=== PATIENT | male | born 1990 | race Caucasian/White ===

== ENCOUNTER 2022-10-18 15:16 | Emergency (ER) | payer OTHER, SELFPAY ==
[2022-10-18 15:20] VITALS: BP 136/63; PULSE 81; RESP 16; TEMP 36.6; O2SAT 98; BMI 25.8
--- NOTE | 2022-10-18 15:54 | DI.CT.S_ITS ---
PROCEDURE: CT CERVICAL SPINE WO CON INDICATIONS: hit in head w/ pipe. head and cervical spine pain TECHNIQUE: Noncontrast 3 mm thick sections acquired from the skull base to the T4 level. Sagittal and coronal reformats were then constructed. For radiation dose reduction, the following was used: automated exposure control, adjustment of mA and/or kV according to patient size. COMPARISON: None. FINDINGS: Image quality: Excellent. Bones: No fractures or dislocations. Visualized superior ribs are intact. There is straightening the normal cervical lordosis. Mild degenerative disc space narrowing noted C5-6 Soft tissues: Prevertebral soft tissues are normal in thickness. No paravertebral hematomas. No apical pneumothoraces. IMPRESSION: No fracture or traumatic malalignment. Mild midcervical degenerative changes Approved by: Mani Meyer M.D. on 10/18/2022 at 15:38
--- NOTE | 2022-10-18 15:54 | DI.CT.S_ITS ---
PROCEDURE: CT HEAD/BRAIN WO CON INDICATIONS: hit in head w/ pipe. head and cervical spine pain TECHNIQUE: Noncontrast 4.5 mm thick angled axial sections acquired from the foramen magnum to the vertex, with coronal and sagittal reformats. For radiation dose reduction, the following was used: automated exposure control, adjustment of mA and/or kV according to patient size. COMPARISON: None. FINDINGS: Image quality: Excellent. CSF spaces: Basal cisterns are patent. No extra-axial fluid collections. Ventricles are normal in size and shape. Brain: No midline shift. No intracranial masses or hemorrhage. Mckee-white matter interface is normal. Skull and face: Calvarium and visualized facial bones are intact, without suspicious lesions. Sinuses: Visualized sinuses and mastoids are clear. IMPRESSION: Normal CT brain. No intracranial hemorrhage or skull fracture Approved by: Mani Meyer M.D. on 10/18/2022 at 15:42
[2022-10-18 18:18] VITALS: BP 125/67; PULSE 60; RESP 16; O2SAT 100
--- NOTE | 2022-10-18 18:21 | ED.HEATRA ---
HPI - Head Injury <Devin White PA-C - Last Filed: 10/18/22 18:26> General Chief complaint: Head Injury Stated complaint: Head inj Time Seen by Provider: 10/18/22 18:13 Source: patient Mode of arrival: Ambulatory History of Present Illness HPI Narrative: 32-year-old male with no reported past medical history presents to the ED status post a head injury sustained at work just prior to arrival. 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 Patient complains of left-sided neck pain and no other symptoms. Patient did not have any loss of consciousness. Patient is not on blood thinners. Patient endorses some brief nausea after the injury, which has resolved since. No vomiting. Review of Systems <Devin White PA-C - Last Filed: 10/18/22 18:26> Review of Systems ROS Unobtainable: All systems reviewed & are unremarkable except as noted in HPI and below Constitutional Constitutional: Denies chills, Denies fatigue, Denies fever(s), Denies frequent falls, Denies lethargy and Denies weakness Eyes Eyes: Denies change in vision, Denies eye discharge, Denies irritation and Denies loss of vision ENT Ears, Nose, Mouth, and Throat: Denies change in voice, Denies dizziness, Reports neck pain, Denies sore throat and Denies throat swelling Cardiovascular Cardiovascular: Denies chest pain, Denies irregular heart rhythm, Denies lightheadedness, Denies palpitations, Denies dyspnea, Denies dyspnea on exertion and Denies orthopnea Respiratory Respiratory: Denies cough, Denies dyspnea, Denies dyspnea on exertion and Denies wheezing Gastrointestinal Gastrointestinal: Denies abdominal pain, Denies change in bowel habits, Denies diarrhea, Denies nausea and Denies vomiting Genitourinary Genitourinary: Denies hematuria, Denies flank pain, Denies urinary incontinence and Denies urinary urgency Musculoskeletal Musculoskeletal: Denies back pain, Denies muscle weakness, Reports neck pain, Denies numbness and Denies tingling Integumentary/Breasts Skin/Breast: Denies pruritus, Denies erythema, Denies rash and Denies wounds Neurologic Neurologic: Denies behavioral changes, Denies confusion, Denies dizziness, Denies frequent falls, Denies loss of vision, Denies numbness, Denies tingling and Denies weakness Psychiatric Psychiatric: Denies anxiety, Denies behavioral changes, Denies confusion, Denies depression, Denies homicidal ideation and Denies suicidal ideation Endocrine Endocrine: Denies fatigue, Denies flushing and Denies palpitations Hematologic/Lymphatic Hematologic/Lymphatic: Denies easy bruising Allergic/Immunologic Allergic/Immunologic: Denies urticaria, Denies throat swelling and Denies wheezing Patient History <Devin White PA-C - Last Filed: 10/18/22 18:26> Social History Smoking Status: Former smoker Smoking Status: Former smoker Substance Use Type: does not use Exam <Devin White PA-C - Last Filed: 10/18/22 18:26> Narrative Exam Narrative: Const General:?cooperative, healthy appearing and comfortable HENNE Head:?normal to inspection; no hematoma; no skull depressions; no mishra sign Ears:?hearing grossly normal bilaterally Nose:?external nose normal Face and sinus:?normal facial exam and sinuses nontender; no raccoon eyes Mouth:?oral mucosae normal Throat:?posterior oropharynx normal Eyes General:?appearance normal, both eyes and all related structures Neck Neck:?normal visual inspection and no lymphadenopathy noted Resp Effort & Inspection:?normal respiratory effort Auscultation:?clear to auscultation bilaterally Cardio Rate:?regular rate Rhythm:?regular rhythm Musculoskeletal No midline tenderness to palpation. No paraspinal tenderness to palpation. There is full range of motion. Neuro General:?patient alert, patient awake and patient oriented x3 Initial Vital Signs Initial Vital Signs: Vital Signs Temperature 97.9 F 10/18/22 15:20 Pulse Rate 81 10/18/22 15:20 Respiratory Rate 16 10/18/22 15:20 Blood Pressure 136/63 10/18/22 15:20 Pulse Oximetry 98 10/18/22 15:20 Oxygen Delivery Method Room Air 10/18/22 15:20 <Vira Biswas DO - Last Filed: 10/20/22 22:19> Initial Vital Signs Initial Vital Signs: Vital Signs Temperature 97.9 F 10/18/22 15:20 Pulse Rate 81 10/18/22 15:20 Respiratory Rate 16 10/18/22 15:20 Blood Pressure 136/63 10/18/22 15:20 Pulse Oximetry 98 10/18/22 15:20 Oxygen Delivery Method Room Air 10/18/22 15:20 Course <LATESHA Blanc Last Filed: 10/18/22 18:26> Orders Ordered: ED Orders 10/18/22 15:54 CT cervical spine wo con Stat CT head/brain wo con Stat Vital Signs Vital signs: Vital Signs - 8 hr 10/18/22 15:20 10/18/22 18:18 Temperature 97.9 F Pulse Rate 81 60 Respiratory Rate 16 16 Blood Pressure 136/63 125/67 Pulse Oximetry 98 100 Oxygen Delivery Method Room Air <Vira Biswas DO - Last Filed: 10/20/22 22:19> Orders Ordered: ED Orders 10/18/22 15:54 CT cervical spine wo con Stat CT head/brain wo con Stat Vital Signs Vital signs: Vital Signs - 8 hr 10/18/22 15:20 10/18/22 18:18 Temperature 97.9 F Pulse Rate 81 60 Respiratory Rate 16 16 Blood Pressure 136/63 125/67 Pulse Oximetry 98 100 Oxygen Delivery Method Room Air MDM - Head Injury <LATESHA Blanc Last Filed: 10/18/22 18:26> MDM Narrative Medical decision making narrative: 32-year-old male with no reported past medical history presents to the ED status post a head injury sustained at work just prior to arrival. Concern for intracranial hemorrhage versus skull fracture versus neck fracture versus musculoskeletal sprain/strain versus other. CT head, CT C-spine were obtained with no acute findings. Patient's symptoms are likely due to musculoskeletal sprain/strain. It is possible that patient could experience symptoms of a concussion. Discussed findings with patient. Recommend follow-up with PCP as soon as possible. ED return precautions were also discussed with patient. Patient verbalized understanding. Medical records reviewed: Yes Discharge Plan Departure Patient Disposition: Home Clinical Impression: Closed head injury Instructions: DI for Closed Head Injury Activity Restrictions/Additional Instructions: You were evaluated in the ED today for a head injury sustained earlier today. The CT scans of the head and neck were both normal. You may take Tylenol or ibuprofen for the aches and pains from this injury. It is possible that this head injury you sustained could be a concussion, with symptoms ranging from sporadic vomiting, sleepiness, fatigue, headaches, depression, agitation. If you experience any of the symptoms, please exercise cognitive and physical rest, which includes no screens, books, physical exertion. Please follow-up with your PCP as soon as possible. Return to the ED if you experience persistent vomiting, lethargy. Stand Alone Forms: Patient Portal/API <Vira Biswas, DO - Last Filed: 10/20/22 22:19> Cosign ED Attending Kenishaature Attestation: I was immediately available in the department for consultation. Documentation has been reviewed.
== END 2022-10-18 18:25 | disposition home or self-care (01) ==
PROVIDERS: Emergency Provider Student in an Organized Health Care Education/Training Program
DX: S09.90XA Unspecified injury of head, initial encounter (principal); W22.8XXA Striking against or struck by other objects, initial encounter; Y99.0 Civilian activity done for income or pay
CPT/HCPCS: 70450; 72125; 99283; 99284

== ENCOUNTER 2023-05-09 10:29 | Emergency (ER) | payer OTHER, SELFPAY ==
[2023-05-09 11:07] VITALS: BP 138/65; PULSE 90; RESP 18; TEMP 36.8; O2SAT 100; BMI 25.8
--- NOTE | 2023-05-09 11:14 | DI.RAD.S_ITS ---
PROCEDURE: XR HAND LT MIN 3V INDICATIONS: Hand crushed by escvator TECHNIQUE: 3 views of the hand(s) acquired. COMPARISON: None. FINDINGS: Bones: No fractures or dislocations. Carpal bones are normally aligned. No suspicious bony lesions. Soft tissues: No suspicious soft tissue calcifications. Soft tissue gas surrounds the 1st digit. IMPRESSION: 1. Soft tissue laceration. 2. No acute fracture. No osseous lesion. If symptoms and/or clinical suspicion for pathology persist, further assessment with repeat, or advanced imaging (e.g., CT, MRI, or bone scan) may be helpful for further assessment. Dictated by: Brandy Crowe M.D. on 05/09/2023 at 11:52 Approved by: Brandy Crowe M.D. on 05/09/2023 at 11:52
--- NOTE | 2023-05-09 11:14 | DI.RAD.S_ITS ---
PROCEDURE: XR FOREARM LT 2V INDICATIONS: Hand crushed by escvator TECHNIQUE: 2 views of the forearm were acquired. COMPARISON: None. FINDINGS: Bones: No fractures or dislocations. No suspicious bony lesions. Soft tissues: No suspicious soft tissue calcifications or masses. IMPRESSION: No acute fracture. No osseous lesion. If symptoms and/or clinical suspicion for pathology persist, further assessment with repeat, or advanced imaging (e.g., CT, MRI, or bone scan) may be helpful for further assessment. Dictated by: Brandy Crowe M.D. on 05/09/2023 at 11:50 Approved by: Brandy Crowe M.D. on 05/09/2023 at 11:50
--- NOTE | 2023-05-09 11:14 | DI.RAD.S_ITS ---
PROCEDURE: XR WRIST LT MIN 3V INDICATIONS: Hand crushed by escvator TECHNIQUE: 4 views of the wrist were acquired. COMPARISON: None. FINDINGS: Bones: No fractures or dislocations. No suspicious bony lesions. Soft tissues: No suspicious soft tissue calcifications. IMPRESSION: No acute fracture. No osseous lesion. If symptoms and/or clinical suspicion for pathology persist, further assessment with repeat, or advanced imaging (e.g., CT, MRI, or bone scan) may be helpful for further assessment. Dictated by: Brandy Crowe M.D. on 05/09/2023 at 11:50 Approved by: Brandy Crowe M.D. on 05/09/2023 at 11:52
--- NOTE | 2023-05-09 12:10 | ED.UPPEXIN ---
HPI - Extremity Injury (Upper) <Devin White PA-C - Last Filed: 05/10/23 19:37> General Chief Complaint: Extremity Injury, Upper Stated Complaint: hand got crushed at work Time Seen by Provider: 05/09/23 11:59 Source: patient Mode of arrival: Ambulatory History of Present Illness HPI narrative: 33-year-old male presents to the ED status post a left hand injury sustained just prior to arrival. 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 Patient endorses being able to move all his fingers, however his thumb is painful to move. Patient has an injury to the webbing between his thumb and index finger. Bleeding is controlled with pressure. Tetanus is not up-to-date. Related Data Allergies Allergy/AdvReac Type Severity Reaction Status Date / Time No Known Drug Allergies Allergy Verified 05/09/23 11:13 Review of Systems <Devin White PA-C - Last Filed: 05/10/23 19:37> Constitutional Constitutional: Denies chills, Denies fatigue, Denies fever(s), Denies frequent falls, Denies lethargy and Denies weakness Eyes Eyes: Denies change in vision, Denies eye discharge, Denies irritation and Denies loss of vision ENT Ears, Nose, Mouth, and Throat: Denies change in voice, Denies dizziness, Denies neck pain, Denies sore throat and Denies throat swelling Cardiovascular Cardiovascular: Denies chest pain, Denies irregular heart rhythm, Denies lightheadedness, Denies palpitations, Denies dyspnea, Denies dyspnea on exertion and Denies orthopnea Respiratory Respiratory: Denies cough, Denies dyspnea, Denies dyspnea on exertion and Denies wheezing Gastrointestinal Gastrointestinal: Denies abdominal pain, Denies change in bowel habits, Denies diarrhea, Denies nausea and Denies vomiting Musculoskeletal Musculoskeletal: Denies neck pain and Denies numbness Integumentary/Breasts Skin/Breast: Denies pruritus, Denies erythema, Denies rash and Reports wounds Neurologic Neurologic: Denies behavioral changes, Denies confusion, Denies dizziness, Denies frequent falls, Denies loss of vision, Denies numbness and Denies weakness Psychiatric Psychiatric: Denies anxiety, Denies behavioral changes, Denies confusion, Denies depression, Denies homicidal ideation and Denies suicidal ideation Endocrine Endocrine: Denies fatigue, Denies flushing and Denies palpitations Hematologic/Lymphatic Hematologic/Lymphatic: Denies easy bruising Allergic/Immunologic Allergic/Immunologic: Denies urticaria, Denies throat swelling and Denies wheezing Patient History <Devin White PA-C - Last Filed: 05/10/23 19:37> Social History Smoking Status: Former smoker Smoking Status: Former smoker Substance Use Type: does not use Exam <Devin White PA-C - Last Filed: 05/10/23 19:37> Narrative Exam Narrative: Const General:?cooperative, healthy appearing and comfortable HENMT Head:?normal to inspection Ears:?hearing grossly normal bilaterally Nose:?external nose normal Face and sinus:?normal facial exam and sinuses nontender Mouth:?oral mucosae normal Throat:?posterior oropharynx normal Eyes General:?appearance normal, both eyes and all related structures Neck Neck:?normal visual inspection and no lymphadenopathy noted Resp Effort & Inspection:?normal respiratory effort Auscultation:?clear to auscultation bilaterally Cardio Rate:?regular rate Rhythm:?regular rhythm Integumentary There are 2 lacerations, 1 to the base of the thumb on the volar aspect. The 2nd laceration is to the webbing between the thumb and the pointer finger. Bleeding is controlled with pressure. No deeper structures visualized on exam. Strength and sensation is intact. There is full range of motion. Patient is neurovascularly intact. Neuro General:?patient alert, patient awake and patient oriented x3 Initial Vital Signs Initial Vital Signs: Vital Signs Temperature 98.2 F 05/09/23 11:07 Pulse Rate 90 05/09/23 11:07 Respiratory Rate 18 05/09/23 11:07 Blood Pressure 138/65 05/09/23 11:07 Pulse Oximetry 100 05/09/23 11:07 Oxygen Delivery Method Room Air 05/09/23 11:07 <Cara Melton DO - Last Filed: 05/16/23 07:07> Initial Vital Signs Initial Vital Signs: Vital Signs Temperature 98.2 F 05/09/23 11:07 Pulse Rate 90 05/09/23 11:07 Respiratory Rate 18 05/09/23 11:07 Blood Pressure 138/65 05/09/23 11:07 Pulse Oximetry 100 05/09/23 11:07 Oxygen Delivery Method Room Air 05/09/23 11:07 Procedures <Devin White PA-C - Last Filed: 05/10/23 19:37> Laceration Repair Laceration 1: Site: hand Side (If applicable): left Size (cm): 1 Description: linear Depth: simple, single layer Local Anesthetic: lidocaine 2% Amount of anesthesia used (mL): 0.5 Pre-repair: wound explored, irrigated extensively and deep structures intact Skin layer closed with: nylon Skin layer suture size: 5-0 Number of sutures: 4 Technique: simple, interrupted Laceration 2: Site: hand Side (If applicable): left Size (cm): 4 Description: linear Depth: simple, single layer Local Anesthetic: lidocaine 2% Amount of anesthesia used (mL): 4 Pre-repair: wound explored, irrigated extensively and deep structures intact Skin layer closed with: nylon Skin layer suture size: 5-0 Number of sutures: 5 Technique: simple, interrupted Course <Devin White PA-C - Last Filed: 05/10/23 19:37> Orders Ordered: Discontinued Medications Diphtheria/Tetanus/Acell Pertussis (Tet,Diph,Pertuss(Acell),Vac/Pf 0.5 Ml Syringe) 0.5 ml IM .ONCE ONE Stop: 05/09/23 11:15 Last Admin: 05/09/23 14:14 Dose: 0.5 ml Documented By: TIFFANIE Lidocaine HCl (Lidocaine 2% Inj Sdv 5ml) 5 ml INJ INTRA-OP ONE Stop: 05/09/23 13:10 Last Admin: 05/09/23 13:56 Dose: 5 ml Documented By: TIFFANIE Oxycodone/Acetaminophen (Oxycodone/Acetaminophen 5/325 Tablet) 1 tab PO NOW ONE Stop: 05/09/23 13:07 Last Admin: 05/09/23 13:08 Dose: 1 tab Documented By: TIFFANIE Vital Signs Vital signs: Vital Signs - 8 hr 05/09/23 11:07 Temperature 98.2 F Pulse Rate 90 Respiratory Rate 18 Blood Pressure 138/65 Pulse Oximetry 100 Oxygen Delivery Method Room Air <Cara Melton DO - Last Filed: 05/16/23 07:07> Orders Ordered: Discontinued Medications Diphtheria/Tetanus/Acell Pertussis (Tet,Diph,Pertuss(Acell),Vac/Pf 0.5 Ml Syringe) 0.5 ml IM .ONCE ONE Stop: 05/09/23 11:15 Last Admin: 05/09/23 14:14 Dose: 0.5 ml Documented By: TIFFANIE Lidocaine HCl (Lidocaine 2% Inj Sdv 5ml) 5 ml INJ INTRA-OP ONE Stop: 05/09/23 13:10 Last Admin: 05/09/23 13:56 Dose: 5 ml Documented By: TIFFANIE Oxycodone/Acetaminophen (Oxycodone/Acetaminophen 5/325 Tablet) 1 tab PO NOW ONE Stop: 05/09/23 13:07 Last Admin: 05/09/23 13:08 Dose: 1 tab Documented By: TIFFANIE Vital Signs Vital signs: Vital Signs - 8 hr 05/09/23 11:07 Temperature 98.2 F Pulse Rate 90 Respiratory Rate 18 Blood Pressure 138/65 Pulse Oximetry 100 Oxygen Delivery Method Room Air MDM - Extremity Injury (Upper) <Devin White PA-C - Last Filed: 05/10/23 19:37> MDM Narrative Medical decision making narrative: 33-year-old male presents to the ED status post a left hand injury sustained just prior to arrival. Concern for laceration versus fracture/dislocation versus other. Obtained x-ray with no acute findings. Laceration was repaired with sutures. Sutures will need to be removed in 7-10 days. Suture removal and wound care instructions discussed with patient. Tetanus was updated. Patient was given Percocet in the ED for pain control. Percocet prescribed for pain control at home as needed. ED return precautions discussed with patient. Patient verbalized understanding. Medical records reviewed: Yes Discharge Plan Departure Patient Disposition: Home Clinical Impression: Laceration Instructions: DI for Laceration Repair Activity Restrictions/Additional Instructions: You were evaluated in the ED today for a hand injury. Your x-ray did not show any fractures or dislocations. Your lacerations were repaired with sutures. The sutures will need to be removed in 7-10 days. You may go to a walk-in clinic or urgent care clinic or return to the ED for suture removal. Please watch for signs of infection including worsening redness, swelling, pain, warmth, discharge. Return to the ED if you note any signs of infection, or experience numbness, tingling, weakness. You were also given a tetanus update today in the ED which is good for 10 years. You may take ibuprofen for pain control. Stand Alone Forms: Patient Portal/API ED Sign-out <Cara Melton DO - Last Filed: 05/16/23 07:07> Cosign ED Attending Coslaurynature Attestation: I was immediately available in the department for consultation.
[2023-05-09] MEDS: OXYCODONE/ACETAMINOPHEN 5/325 TABLET 1 TAB PO (13:08)
[2023-05-09] MEDS: LIDOCAINE 2% INJ SDV 5ML 5 ML INJ (13:56)
[2023-05-09] MEDS: TET,DIPH,PERTUSS(ACELL),VAC/PF 0.5 ML SYRINGE IM (14:14)
[2023-05-09 15:03] VITALS: BP 138/61; PULSE 84; RESP 18; O2SAT 99
== END 2023-05-09 15:08 | disposition home or self-care (01) ==
PROVIDERS: Emergency Provider Student in an Organized Health Care Education/Training Program
DX: S61.412A Laceration without foreign body of left hand, initial encounter (principal); W31.89XA Contact with other specified machinery, initial encounter; Y99.0 Civilian activity done for income or pay; Z23 Encounter for immunization
CPT/HCPCS: 12002; 73090; 73110; 73130; 90471; 99284; 90715